=== PATIENT | female | born 1985 | race African-American/Black ===

== ENCOUNTER 2019-05-05 15:53 | Emergency (ER) | payer MEDICARE, MEDICAID ==
[~2019-05-05] VITALS: Ht 149.9 cm; Wt 56.7 kg
[2019-05-05 16:19] LABS: URINE BILIRUBIN NEGATIVE (Negative); URINE BLOOD NEGATIVE (Negative); URINE CLARITY CLEAR; URINE COLOR YELLOW; URINE GLUCOSE-RANDOM NEGATIVE (Negative); URINE KETONES NEGATIVE (Negative); URINE LEUKOCYTES NEGATIVE (Negative); URINE NITRITE POSITIVE (Negative); URINE PROTEIN NEGATIVE (Negative); URINE UROBILINOGEN 0.2 E.U./dl (0.2-1.0)
[2019-05-05 16:25] LABS: BACTERIA >30 Many /HPF (None Seen); SQUAMOUS >10 Many /LPF (0-3)
[2019-05-05 16:26] LABS: AMP/METHAMP Negative (Negative); BARBITURATES Negative (Negative); BENZODIAZEPINES Negative (Negative); CASTS None Seen /LPF (None Seen); COCAINE Negative (Negative); CRYSTALS None Seen /LPF (None Seen); METHADONE Negative (Negative); MUCUS 0-3 Light strn/LPF (None Seen); OPIATES Negative (Negative); PCP Negative (Negative); THC Negative (Negative); URINE RBC None Seen /HPF (0-2); URINE WBC 0-5 Rare /HPF (0-5)
[2019-05-05 16:32] LABS: HEMOGLOBIN 10.9 gm/dL (12.0-15.0); MCH 23.2 pg (26.0-34.0); MCHC 32.2 g/dL (28.0-37.0); MCV 72.3 fL (80.0-100.0); MPV 9.3 fl. (7.2-11.1); RBC 4.7 mil/uL (4.20-5.00); RDW-CV 17.2 % (10.5-14.5); WBC 5.1 thou/uL (4.0-11.0)
[2019-05-05] MEDS ORDERED: ABILIFY20 MG PO (16:32)
[2019-05-05 16:50] LABS: CALCIUM 8.9 mg/dL (8.5-10.1); CREATININE 0.9 mg/dL (0.6-1.3); POTASSIUM 3.5 mmol/L (3.5-5.1)
[2019-05-05 16:55] LABS: ALBUMIN 3.7 g/dL (3.4-5.0); SALICYLATE < 2.8 mg/dL (2.8-20.0); TOTAL BILIRUBIN 0.4 mg/dL (<0.1-1.0); TOTAL PROTEIN 7.9 g/dL (6.4-8.2)
[2019-05-05 16:56] LABS: ACETAMINOPHEN < 2 ug/mL (10-30); ALCOHOL < 10 mg/dL (<10)
[2019-05-07 03:00] VITALS: BP 122/79
== END 2019-05-07 03:00 | disposition still patient (30) ==
LOC: M.ERS 15:53
PROVIDERS: Personal Emergency Response Attendant
DX: F23 Brief psychotic disorder (principal); F31.9 Bipolar disorder, unspecified